=== PATIENT | female | born 1990 | race Caucasian/White ===

== ENCOUNTER → 2023-10-26 | Day surgery (SDC) | payer BC ==
[2011-09-02 16:22] VITALS: BP 109/68
--- NOTE | 2023-10-26 12:35 | RAD REPORT ---
EXAM DESCRIPTION: US - BREAST/AXILLA, LIMITED - 10/26/2023 11:40 am CLINICAL HISTORY: N63.10 COMPARISON: October 19, 2023 ultrasound FINDINGS: Patient presented for a biopsy of a 1.7 centimeter mass upper-outer right breast. The mass was localized under ultrasound guidance. Unfortunately, the mass mass is very mobile and lie s adjacent to the breast implant. . I felt the risk of piercing the breast implant while performing the ultrasound-guided core biopsy out weighed the benefit of acquiring a tissue diagnosis. I discussed with Dr. Krishnan. It was decided that he either would perform a surgical excision of the ma ss as it is palpable or obtain an MRI to help determine if it has characteristics of malignancy. I discussed this with the patient.
== END ==
LOC: DS 09:39
PROVIDERS: ATTEND Surgery
DX: N63.10 Unspecified lump in the right breast, unspecified quadrant (principal); Z53.09 Procedure and treatment not carried out because of other contraindication
CPT/HCPCS: 76642

== ENCOUNTER 2024-06-13 06:10 | Day surgery (SDC) | payer BC ==
[2024-06-09 13:03] LABS: Absolute Basophils 0.1 K/uL (0-0.5); Absolute Eosinophils 0.5 K/uL (0-0.5); Absolute Lymphocytes (CBC) 2.2 K/uL (0.7-4.9); Absolute Monocytes 0.6 K/uL (0.1-1.3); Absolute Neutrophil 5.4 K/uL (1.8-8.0); Eosinophils % 5.5 % (0-4.4); Hematocrit 36.7 % (36.0-45.0); Lymphocytes % 24.8 % (15.3-44.8); MCH 33.3 pg (27.0-35.0); MCHC 35.4 g/dL (32.0-36.0); MCV 94.2 fL (80-100); MPV 7.6 fL (7.6-11.3); Monocytes % 6.7 % (3.3-12.3); Nucleated Red Blood Cells % 0.1 % (0-0); Platelets 266 thou/uL (152-406); RBC Red Blood Cell Count 3.89 M/uL (3.86-4.86); Red Cell Distribution Width 12.8 % (12.1-15.2)
[2024-06-13] MEDS: Ringers Lactate 1,000 ML IV ONE (06:25)
[2024-06-13] MEDS ORDERED: LIDOCAINE 2% MPF 5 ML VIAL ONE (06:40)
[2024-06-13] MEDS ORDERED: FENTANYL CITR 100 MCG/2 ML ONE (06:40)
[2024-06-13] MEDS ORDERED: propofoL 200 MG/20 ML VIAL IV ONE (06:40)
[2024-06-13] MEDS ORDERED: MIDAZOLAM HCL 2 MG/2 ML INJ ONE ×2 (06:40→06:55)
[2024-06-13] MEDS ORDERED: ONDANSETRON 4 MG/2 ML VIAL ONE (06:40)
[2024-06-13] MEDS ORDERED: Mastisol Adhesive Liq ONE (06:44)
[2024-06-13] MEDS: CEFAZOLIN SODIUM 2 GM/VIAL ONE (06:55)
[2024-06-13] MEDS: BUPIVACAINE 0.5% PF 10 ML VIAL ONE (06:56)
[2024-06-13] MEDS ORDERED: EPHEDRINE SULF 50 MG/ML VIAL ONE (07:13)
--- NOTE | 2024-06-13 07:50 | P.OP ---
Date of Service: 06/13/24 Preop diagnosis: Right breast mass Postop diagnosis: Same Procedure performed: Excision right breast mass Surgeon: James Krishnan MD Sculpture Conservator: Sully LARA Estimated blood loss: Minimal Specimen: Right breast mass Findings: As above Anesthesia: General Complications: None Drains: None Fluids and blood products: Nonapplicable Disposition: Recovery room Operative note: Patient brought to the OR and placed in supine position. General anesthesia began. Patient prepped and draped in usual sterile fashion. Marcaine 0.5% for local for postop pain control. 15 blade used to make a 2.5 cm incision on the upper outer quadrant of the right breast near the axilla. Subcutaneous tissue divided. Bleeding controlled with cautery. Approximately a 2 x 3 cm mass identified and excised. Mass sent to pathology as specimen. Wound irrigated and bleeding controlled cautery. 3-0 chromic used to approximate subcutaneous tissue and close skin. Sterile dressing applied. Patient awakened and taken to recovery room in good general condition. CC:
[2024-06-13] MEDS: MEPERIDINE HCL 25 MG/ML SYR ONE (08:02)
[2024-06-13 08:27] VITALS: O2SAT 99
[2024-06-13] MEDS ORDERED: TRAMADOL 37.5mg/APAP 325mg PER TAB ONE (08:48)
[2024-06-13] MEDS: TRAMADOL 37.5mg/APAP 325mg PER TAB PO PRN (08:49)
[2024-06-13 09:16] VITALS: BP 114/80; TEMP 97.5
== END 2024-06-13 09:09 | disposition home or self-care (01) ==
LOC: OR 06:10
PROVIDERS: ATTEND Surgery
PROC: 0HBT0ZZ Excision of Right Breast, Open Approach (ICD-10-PCS; principal; 2024-06-13 07:00)
DX: D24.1 Benign neoplasm of right breast (principal)
CPT/HCPCS: 85025; 36415; 88305; 19120; J2704; J2003; J2250; J3010; J2175; J2405; J7120